=== PATIENT | female | born 1990 | race American Indian/Alaskan Native ===

== ENCOUNTER 2016-10-12 14:20 | Emergency (ER) | payer SELFPAY ==
--- NOTE | 2016-10-12 15:07 | Emergency Department Report ---
Chief Complaint: Abdominal Pain Stated Complaint: SEVERE STOMACH PAIN X 3 WKS Time Seen by Provider: 10/12/16 15:03 - HPI History of Present Illness: 26-year-old female comes in complaining of mid abdominal pain 3 weeks gotten worse in the past 5-7 days. She does report she had a menstrual cycle for 13 days at the end of of August. Patient complains of some mild nausea she denies any vomiting or diarrhea. She reports she been having normal stools denies hematuria and denies hematochezia last BM was this a.m. she reports she is a past medical history of IBS or constipation she reports that this pain is different than what she usually deals with. She has tried [id number] medications such as ibuprofen Gas-X Advil Tylenol Midol without any resolution of pain - Exam Vital Signs: Vital Signs 10/12/16 14:35 Temperature 98.2 F Pulse Rate 82 Respiratory 16 Rate Blood Pressure 100/65 O2 Sat by Pulse 100 Oximetry Physical Exam: Patient's alert and oriented no acute distress, cardiovascular S1-S2 regular rate and rhythm respiratory clear to auscultation bilaterally abdomen some distention right upper quadrant tenderness worse then left upper quadrant tenderness. MSE screening note: Focused history and physical exam performed. Due to findings the following was ordered: Triage abdominal protocol call order patient be evaluated in main ER ED Disposition for MSE Condition: Stable Instructions: Abdominal Pain (ED)
[2016-10-12 15:47] LABS: Eosinophils % (Auto) 0.4 % (0.0-4.3); Hematocrit 30.8 % (30.3-42.9); Hemoglobin 10.4 gm/dl (10.1-14.3); Mean Corpuscular HGB Conc 34 % (30-34); Mean Corpuscular Hemoglobin 30 pg (28-32); Mean Corpuscular Volume 89 fl (79-97); Platelet Count 320 K/mm3 (140-440); Red Blood Count 3.48 M/mm3 (3.65-5.03); Red Cell Distribution Width 11.6 % (13.2-15.2); White Blood Count 9.5 K/mm3 (4.5-11.0)
[2016-10-12 15:49] LABS: Alanine Aminotransferase 6 units/L (7-56); Albumin 3.7 g/dL (3.9-5); Albumin/Globulin Ratio 0.9 %; Alkaline Phosphatase 59 units/L (35-129); BUN/Creatinine Ratio 12.85; Bilirubin,Total 0.2 mg/dL (0.1-1.2); Blood Urea Nitrogen 9 mg/dL (7-17); Carbon Dioxide 28 mmol/L (22-30); Chloride 100.4 mmol/L (98-107); Glucose 70 mg/dL (65-100); Lipase 16 units/L (13-60); Potassium 3.9 mmol/L (3.6-5.0); Sodium 138 mmol/L (137-145); Total Protein 7.7 g/dL (6.3-8.2)
[2016-10-12 15:53] LABS: Anion Gap 14 mmol/L
[2016-10-12 16:30] LABS: Bilirubin,Urine NEG (Negative); Blood,Urine SM (Negative); Ketones,Urine TR mg/dL (Negative); Leukocyte Esterase,Urine NEG (Negative); Mucus,Urine 3+ /HPF; Nitrite,Urine NEG (Negative); Urobilinogen,Urine < 2.0 mg/dL (<2.0)
--- NOTE | 2016-10-12 17:09 | Ultrasound Report ---
FINAL REPORT EXAM: US ABDOMEN LIMITED HISTORY: ruq pain and tenderness TECHNIQUE: Ultrasound examination of the abdomen PRIORS: None. FINDINGS: Normal caliber visualized portion of abdominal aorta and IVC. No definite liver abnormality. Normal-appearing right kidney. No right upper quadrant ascites. No abnormality in visualized portion the pancreas. Contracted gallbladder limits the evaluation. Technologist reports patient not NPO. Nevertheless, no evidence of gallbladder wall thickening or pericholecystic fluid. No gallstones visualized sonographically. Normal diameter common bile duct, 3.7 mm. IMPRESSION: No evidence of acute pathology. Contracted gallbladder limits the evaluation
[2016-10-12 22:25] VITALS: BP 117/78
--- NOTE | 2016-10-13 19:02 | ED Elopement Review ---
ED Pt Elopement review - Results review Lab results: Laboratory Tests 10/12/16 10/12/16 10/12/16 15:11 15:11 15:11 WBC 9.5 RBC 3.48 L Hgb 10.4 Hct 30.8 MCV 89 MCH 30 MCHC 34 RDW 11.6 L Plt Count 320 Lymph % (Auto) 16.4 Power % (Auto) 5.7 Eos % (Auto) 0.4 Baso % (Auto) Electrical Tech Lymph # 1.6 Power # 0.5 Eos # 0.0 Baso # 0.0 Seg Neutrophils % 77.3 H Seg Neutrophils # 7.4 Sodium 138 Potassium 3.9 Chloride 100.4 Carbon Dioxide 28 Anion Gap 14 BUN 9 Creatinine 0.7 Estimated GFR > 60 BUN/Creatinine Ratio 12.85 Glucose 70 Calcium 9.0 Total Bilirubin 0.2 AST 15 ALT 6 L Alkaline Phosphatase 59 Total Protein 7.7 Albumin 3.7 L Albumin/Globulin Ratio 0.9 Lipase 16 HCG, Qual Negative Urine Color Urine Turbidity Urine pH Ur Specific Kyle Urine Protein Urine Glucose (UA) Urine Ketones Urine Blood Urine Nitrite Urine Bilirubin Urine Urobilinogen Ur Leukocyte Esterase Urine WBC (Auto) Urine RBC (Auto) U Epithel Cells (Auto) Urine Mucus 10/12/16 15:39 WBC RBC Hgb Hct MCV MCH MCHC RDW Plt Count Lymph % (Auto) Power % (Auto) Eos % (Auto) Baso % (Auto) Lymph # Power # Eos # Baso # Seg Neutrophils % Seg Neutrophils # Sodium Potassium Chloride Carbon Dioxide Anion Gap BUN Creatinine Estimated GFR BUN/Creatinine Ratio Glucose Calcium Total Bilirubin AST ALT Alkaline Phosphatase Total Protein Albumin Albumin/Globulin Ratio Lipase HCG, Qual Urine Color Yellow Urine Turbidity Clear Urine pH 5.0 Ur Specific Kyle 1.025 Urine Protein 30 mg/dl Urine Glucose (UA) Neg Urine Ketones Tr Urine Blood Sm Urine Nitrite Neg Urine Bilirubin Neg Urine Urobilinogen < 2.0 Ur Leukocyte Esterase Neg Urine WBC (Auto) 1.0 Urine RBC (Auto) 34.0 U Epithel Cells (Auto) 1.0 Urine Mucus 3+ - Call Back decision Pt Call Back Decision: No action required
== END 2016-10-12 22:40 | disposition left against medical advice (07) ==
LOC: ED 14:20
DX: R10.11 Right upper quadrant pain (principal); R10.12 Left upper quadrant pain; R11.0 Nausea; Z53.21 Procedure and treatment not carried out due to patient leaving prior to being seen by health care provider
CPT/HCPCS: 36415; 76705; 80053; 81001; 83690; 84703; 85025